=== PATIENT | female | born 1990 | race Caucasian/White ===

== ENCOUNTER → 2017-12-28 | Outpatient (CLI) | payer MEDICAID ==
[~2017-12-28] MED LIST: BUS10 PO; CITA-141 PO; DIC250 PO; DOC240 PO; DULO60CA56 PO; FERR325C2 PO; FLU20 PO; HYDR25CA83 PO; IBU800 PO; LAMO200T46 PO; LEVO50TA80 PO; LORA-630 PO; METO5SOL18 PO; ONDA4TAB PO; PAR20 PO; PER PO; POLY17PO25 PO; QUET400T13 PO; QUET50TA21 PO; [UNRECOGNIZED DRUG - CODE] TP
[2017-12-28 12:06] LABS: PLATELET COUNT, AUTOMATED 218 K/uL (150-450)
--- NOTE | 2017-12-28 12:08 | EKG ---
[place] [facility] [place] PAOLO WERNER : [id number] MR: [id number] V: [id number] EXAM DATE: ORDERING PHYSICIAN: EVERARDO SCALES TECHNOLOGIST: DEV Test Reason : CP Blood Pressure : / mmHG Vent. Rate : 078 BPM Atrial Rate : 078 BPM P-R Int : 146 ms QRS Dur : 076 ms QT Int : 428 ms P-R-T Axes : 061 079 057 degrees QTc Int : 487 ms Normal sinus rhythm Prolonged QT Abnormal ECG No previous ECGs available Confirmed by CHARLEY CHAPMAN ([id number]) on 12/29/2017 6:23:46 AM Referred By: TIM MIRANDA Confirmed By:CHARLEY CHAPMAN
[2017-12-28 12:19] LABS: LDL CHOLESTEROL 122 mg/dl
== END ==
LOC: LAB 11:38
PROVIDERS: ATTEND Nurse Practitioner Family
DX: E03.9 Hypothyroidism, unspecified (principal); R07.9 Chest pain, unspecified; E78.5 Hyperlipidemia, unspecified; R53.83 Other fatigue; R00.2 Palpitations
CPT/HCPCS: 36415; 82040; 82247; 82310; 82374; 82435; 82465; 82565; 82947; 83718; 84075; 84132; 84155; 84295; 84439; 84443; 84450; 84460; 84478; 84480; 84520; 85025; 93005

== ENCOUNTER → 2018-03-01 | Outpatient (CLI) | payer MEDICAID ==
[~2018-03-01] MED LIST changes: +FOLI0.4T56 PO; +PREN-127 PO; +QUET100T PO; +QUET200T83 PO; +QUET400T PO; +QUEXR300PT GT; +THYR15TA; +THYR15TA PO; +THYR30TA PO; +THYR90TA13 PO
[2018-03-01 10:22] LABS: PLATELET COUNT, AUTOMATED 194 K/uL (150-450)
== END ==
LOC: LAB 08:22
PROVIDERS: ATTEND Student in an Organized Health Care Education/Training Program
DX: Z34.91 Encounter for supervision of normal pregnancy, unspecified, first trimester (principal); E03.9 Hypothyroidism, unspecified
CPT/HCPCS: 36415; 81001; 84439; 84443; 85025; 86592; 86703; 86762; 86850; 86900; 86901; 87088; 87340

== ENCOUNTER → 2018-03-18 | Outpatient (CLI) | payer MEDICAID | LOC: LAB 12:29 | PROVIDERS: ATTEND Student in an Organized Health Care Education/Training Program | DX: Z34.91 Encounter for supervision of normal pregnancy, unspecified, first trimester (principal) | CPT/HCPCS: 87491; 87591 ==

== ENCOUNTER → 2018-05-13 | Outpatient (CLI) | payer MEDICAID ==
[~2018-05-13] MED LIST changes: +FLU60VIA41 IM
== END ==
LOC: LAB 13:26
PROVIDERS: ATTEND Student in an Organized Health Care Education/Training Program
DX: O99.282 Endocrine, nutritional and metabolic diseases complicating pregnancy, second trimester (principal); E03.9 Hypothyroidism, unspecified
CPT/HCPCS: 36415; 84443

== ENCOUNTER → 2018-06-11 | Outpatient (CLI) | payer MEDICAID ==
--- NOTE | 2018-06-11 00:41 | RADIOLOGY IMAGING REPORT ---
FACILITY: [facility] PATIENT NAME: Karen Hameed : 1990 MR: [id number] V: [id number] EXAM DATE: ORDERING PHYSICIAN: RADHA BRAVO TECHNOLOGIST: Location: [facility] Patient: Karen Hameed : 1990 Visit/Account:[id number] Date of Sevice: 06/10/2018 [facility] OB ANATOMICAL SURVEY HISTORY: Screening. COMPARISON STUDIES: None. FINDINGS: Intrauterine gestations: One. presentation: Variable. heart rate: Regular at 147 bpm. Amniotic fluid index: 21.5 cm. Largest amniotic fluid pocket 5.7 cm. Placenta: Anterior without previa. There are venous lakes. Placental cord insertion is normal. Uterus: Gravid, otherwise normal. Maternal adnexa: Unremarkable. Cervix: Closed. Gestational Parameters: BPD: 5.3 cm 22 weeks/ 2 days HC: 20.1 cm 22 weeks/ 2 days AC: 17.2 cm 22 weeks/ 2 days FL: 3.6 cm 21 weeks/ 4 days Average ultrasound age (AUA): 22 weeks 1 days Estimated gestational age by LMP of 01/14/2018: 21 weeks 0 days, corresponding to ESTRELLA 10/21/2017. Estimated weight (EFW): 463 grams +/- 68 grams EFW: 90 th percentile based on LMP Anatomic Survey: Intracranial structures, right ventricular outflow tract, aortic arch, stomach, kidneys, urinary blad ashley, spine, 3-vessel cord and cord insertion are unremarkable. Two upper and two lower extremities vi sualized. Nasal bone is not appreciated on the profile view, potentially positional. Four-chamber hea rt view is optimal nor is the left ventricular outflow tract view. Nose and lips view was not obtaine d. gender appears male. IMPRESSION: 1. Single live intrauterine gestation; estimated ultrasound age 22 weeks 1 days, corresponding to ESTRELLA 10/13/2018, 8 days ahead of the ESTRELLA based on LMP. 2. Normal anatomic survey. Patient is returning for imaging of the nose and lips view, left tobias tricular outflow tract, and four-chamber heart view. Suggestion is to repeat the profile view at that time to visualize the nasal bone. Report Dictated By: Daniela Morales at 06/11/2018 12:31 AM Report E-Signed By: Daniela Morales at 06/11/2018 12:38 AM WSN:[id number]
== END ==
LOC: US 06-10 09:49
PROVIDERS: ATTEND Student in an Organized Health Care Education/Training Program
DX: Z34.82 Encounter for supervision of other normal pregnancy, second trimester (principal); Z3A.22 22 weeks gestation of pregnancy
CPT/HCPCS: 76815

== ENCOUNTER → 2018-07-30 | Outpatient (CLI) | payer MEDICAID ==
[~2018-07-30] MED LIST changes: +DIPH0.5D12 IM
[2018-07-30 14:30] LABS: PLATELET COUNT, AUTOMATED 185 K/uL (150-450)
== END ==
LOC: LAB 08:49
PROVIDERS: ATTEND Student in an Organized Health Care Education/Training Program
DX: O99.282 Endocrine, nutritional and metabolic diseases complicating pregnancy, second trimester (principal); E03.9 Hypothyroidism, unspecified
CPT/HCPCS: 36415; 82950; 84443; 85025

== ENCOUNTER → 2018-08-01 | Outpatient (CLI) | payer MEDICAID | LOC: LAB 09:18 | PROVIDERS: ATTEND Student in an Organized Health Care Education/Training Program | DX: O99.810 Abnormal glucose complicating pregnancy (principal) | CPT/HCPCS: 36415; 82951; 82952 ==

== ENCOUNTER 2018-08-09 12:26 | Outpatient (CLI) | payer MEDICAID ==
[~2018-08-09] VITALS: Ht 160 cm; Wt 66.2 kg
[2018-08-09 12:32] VITALS: BP 126/69
[2018-08-09 16:52] VITALS: Ht 160 cm; Wt 66.2 kg
[2018-08-11] MEDS ORDERED: OSE75 FT (12:40)
== END 2018-08-09 15:30 | disposition home or self-care (01) ==
LOC: ER 12:33 → OB 12:39 → UNDOADMIN 12:39 → L&D 12:39 → EDSTATUS 12:39 → UNDODISIN 15:30 → L&D 15:30
PROVIDERS: ATTEND Emergency Medicine
DX: O26.893 Other specified pregnancy related conditions, third trimester (principal); Z3A.29 29 weeks gestation of pregnancy
CPT/HCPCS: 99213

== ENCOUNTER → 2018-09-24 | Outpatient (CLI) | payer MEDICAID ==
[2018-08-09 16:52] VITALS: BMI 25.9
[~2018-09-24] MED LIST changes: +BET6I IM ONLY; +OSE75 FT
== END ==
LOC: LAB 11:15
PROVIDERS: ATTEND Student in an Organized Health Care Education/Training Program
DX: Z36.85 Encounter for antenatal screening for Streptococcus B (principal)
CPT/HCPCS: 87081

== ENCOUNTER 2018-10-01 04:52 | Inpatient (IN) | payer MEDICAID ==
[~2018-10-01] VITALS: Ht 165.1 cm; Wt 79.4 kg
[2018-10-01] VITALS (24 sets, daily range): BP systolic 101–148; BP diastolic 68–91; Ht 165.1 cm; Wt 79.4 kg
[~2018-10-01 04:52] MED LIST changes: -DIPH0.5D12 IM; +DIPH0.5S2 IM
[2018-10-01] MEDS ORDERED: LR(*) 1000 ML BAG 1,000 ML IV SCH (04:53)
[2018-10-01] MEDS ORDERED: ceFAZolin(*) 2GM/D5W 50ML 50 ML IVPB ONE (04:53)
[2018-10-01] MEDS ORDERED: FAMOTIDINE 20 MG/50 ML PREMIX IVPB ONE ×2 (04:55→10:00)
[2018-10-01 06:01] LABS: PLATELET COUNT, AUTOMATED 169 K/uL (150-450)
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
[2018-10-01] MEDS ORDERED: ONDANSETRON 4 MG/2 ML VIAL ONE (06:50)
[2018-10-01] MEDS ORDERED: fentaNYL CITR 100 MCG/2 ML AMP ONE (06:50)
[2018-10-01] MEDS ORDERED: MORPHINE PF 5 MG/10 ML AMP ONE (06:51)
--- NOTE | 2018-10-01 07:35 | History & Physical ---
History of Present Illness Age of Patient: 28 : 3 Para or TPAL: 2 EDC per LMP: Oct 21, 2018 Estimated Gestational Age: 37.1 Chief Complaint Scheduled section. History of Present Illness Pt is a 28 y/o @ 37-1/7 wga by lmp who presents to L&D with a complaint of GHTN. Pt is scheduled for a rltcs. Pt denies any headache or visual changes. Good movement. No vaginal bleeding or loss of amniotic fluid. History Patient's Blood Type: A Positive Rubella Status: Equivocal Group B Strep Screen: Negative Obstetrical History: 2 Prior C/s X 2 Past Medical History: Hypothyroid Quetiapine use through out . 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 Family History: Anxiety disorder FATHER, Age:64 Congenital heart defect cousin FH: depression FATHER, Age:64 MOTHER, Age:60 FH: hypothyroidism MOTHER, Age:60 FH: type 2 diabetes FATHER, Age:64 Heart murmur brother Mitral valve prolapse sister Med Rec Home Meds Active Scripts Thyroid,Pork (Assembly Line Worker Thyroid) 15 Mg Tablet, 15 MG PO DAILY, #30 TAB-CAP 3 Refills Prov:RADHA BRAVO DO 06/11/18 Thyroid,Pork (BRANCH RENTAL MANAGER THYROID) 90 Mg Tablet, 90 MG PO DAILY, #30 TAB-CAP 3 Refills Prov:RADHA BRAVO DO 06/11/18 Reported Medications Quetiapine Fumarate (QUETIAPINE FUMARATE) 400 Mg Tablet, 400 MG PO 03/01/18 Vits W-Ca,Fe,Fa(<1MG) ( VITAMINS) 1 Each Tablet, 1 EACH PO DAILY, TAB 03/01/18 Discontinued Scripts Oseltamivir Phosphate (TAMIFLU) 75 Mg Cap, 75 MG FT BID for Flu symptoms for 5 Days, #10 CAP 0 Refills Prov:GUSTAVO DESHPANDE CNM 08/11/18 Review of Systems All Systems Reviewed/Normal: Yes, Except as Noted Constitutional: No Fever, No Weight Loss, No Weight Gain, No Chills, No Night Sweats, No Other Neurological: No Syncope, No Confusion, No Weakness, No Dizziness, No Slurred Speech, No Other Eyes: No Vision Change, No Loss of Vision, No Photophobia, No Other ENT: No Hearing Loss, No Sinus Congestion, No Sore Throat, No Ear Ache, No Tinnitus, No Other Cardiovascular: No Chest Pain, No Palpitations, No Orthostatic Hypotension, No Other Respiratory: No Shortness of Breath, No Cough, No Wheezing, No Other Gastrointestinal: No Nausea, No Vomiting, No Diarrhea, No Dysphagia, No Constipation, No Early Satiety, No Hematemesis, No Hematochezia, No Melena, No Abdominal Pain, No Other Genitourinary: No Dysuria, No Hematuria, No Urinary Incontinence, No Other Musculoskeletal: No Pain, No Sprain, No Strain, No Impaired Mobility, No Other Psychiatric: No Depression, No Anxiety, No Other Exam General Exam Vital Signs Vital Signs Date Time Temp Pulse Resp B/P (MAP) Pulse Ox O2 Delivery O2 Flow Rate FiO2 10/01/18 05:50 98.3 81 18 148/91 (110) 94 Room Air General Apperance: Alert/Awake/No Acute Distress Neuro: No Gross deficits Eyes: Normal Extraocular Movement & Vison, PERRLA ENT: Normal Cardiovascular: Regular Rate and Rhythm Respiratory: No Respiratory Distress, Clear to Auscultation Abdomen: Soft, Non-Tender, Non-Distended : Normal Musculoskeletal: No Weakness/Pain Extremities: No Cyanosis,Clubbing or Edema Integumentary: Skin Intact without Lesions or Rash Psychological: Alert & Oriented X3, Appropriate Mood & Affect Medical Decision Making Data Points Result Diagram: 10/01/18 0531 Pre-Admit Course Medical Record Review: Yes VTE Prophylasis: Adult Deep Vein Thrombosis/Pulmonary: No Assessment and Plan 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 Will monitor post operatively. RADHA BRAVO DO Oct 01, 2018 07:35
[2018-10-01] MEDS ORDERED: ePHEDrine 25 MG/5 ML DISP.SYR IVP ONE (07:58)
[2018-10-01] MEDS ORDERED: PROMETHAZINE 25 MG/ML 1 ML AMP IVP PRN (09:05)
[2018-10-01] MEDS ORDERED: NALBUPHINE HCL 10 MG/ML AMP IVP PRN (09:05)
[2018-10-01] MEDS ORDERED: LANOLIN OINT 7 GM TUBE TP PRN (09:05)
[2018-10-01] MEDS ORDERED: SIMETHICONE 80 MG CHEW CHEW PRN (09:05)
[2018-10-01] MEDS ORDERED: KETOROLAC 30 MG/ML VIAL IVP ONE (09:05)
[2018-10-01] MEDS ORDERED: OXYTOCIN 30 UNIT/D5LR 500 ML 500 ML IV PRN (09:05)
[2018-10-01] MEDS ORDERED: DLR(*) 1000 ML BAG 1,000 ML IV PRN (09:05)
[2018-10-01] MEDS ORDERED: ACETAMINOPHEN 325 MG TAB PO PRN (09:05)
[2018-10-01] MEDS ORDERED: fentaNYL CITR 100 MCG/2 ML AMP IT PRN (09:05)
[2018-10-01] MEDS ORDERED: diphenhydrAMINE 50 MG/ML VIAL IV PRN (09:05)
[2018-10-01] MEDS ORDERED: ONDANSETRON 4 MG/2 ML VIAL IV PRN (09:05)
[2018-10-01] MEDS ORDERED: DLR(*) 1000 ML BAG 1,000 ML IV ONE (09:14)
--- NOTE | 2018-10-01 09:30 | Post Operative Note ---
Operative Note - [facility] Operative Day Date: Oct 01, 2018 Time: 09:20 Physicians Surgeon: Radha Redmond Programs Assistant: Mansi Hodges Anesthesia: Spinal Diagnosis Pre-Op Diagnosis: 28 y/o @ 37-1/7 wga GHTN Hypothyroid Prior C/s X 2 Post-Op Diagnosis: same Delivered Procedure Findings: Live born male infant at 0755 with APGARS of 9/9 weight 3496 gm 7#11.3 oz. 3vc/ip. Normal fallopian tubes bilaterally. Normal Ovaries bilaterally. Procedure(s): RLTCS Specimen Removed:(Maybe N/A): 0 Complications: 0 known Fluids Fluids: 1 L LR u/o 25 cc Estimated Blood Loss: 850 Dictated Date OP Note Dictated: Oct 01, 2018 Time OP Note Dictated: 09:30 RADHA REDMOND DO Oct 01, 2018 09:30
--- NOTE | 2018-10-01 11:47 | OPERATIVE REPORT 1 ---
EVENT DATE: October 01, 2018 SURGEON: Driss Redmond DO ANESTHESIA: Spinal, Daniella Link CRNA INSPECTOR HAIRSPRING TRUING: Mansi Hodges MD PREOPERATIVE DIAGNOSIS 1. 28-year-old 3, para 2 at 37 and 1/7 weeks gestation. 2. Gestational hypertension. 3. Hypothyroidism. 4. Prior delivery times 2. POSTOPERATIVE DIAGNOSIS 1. 28-year-old 3, para 2 at 37 and 1/7 weeks gestation. 2. Gestational hypertension. 3. Hypothyroidism. 4. Prior delivery times 2. 5. Delivered. PROCEDURE PERFORMED Repeat low-transverse section. FINDINGS Live-born male at 07:55 with Apgars of 9 and 9, weighing 3496 grams, 7 lbs. 11 oz., 3-vessel cord, intact placenta. There were normal tubes and ovaries bilaterally. ESTIMATED BLOOD LOSS 850 cc. PATHOLOGY None. IV FLUIDS 1800 lactated ringers. URINE OUTPUT 25 cc. COMPLICATIONS None known. CONDITION Stable times 2. Mother and in recovery. COUNTS Correct for all needles, lap, sponges and instruments. INDICATION AND CONSENT The patient is a 28-year-old 3, para 2 who presents to Labor and Delivery for a scheduled repeat low-transverse section. The patient was noted to have multiple blood pressures over the course of the last week and the week prior that met the criteria for gestational hypertension. She did receive betamethasone on and Sunday of last week for lung maturity secondary to an early term delivery. The patient was counselled that based on prior history of , we should move her delivery up because of gestational hypertension. The consented and agreed to proceed with surgery as indicated. DESCRIPTION OF PROCEDURE The patient was taken to the operating room. Once she had a spinal anesthesia achieved, she was then placed in the dorsal supine position. She was then prepped and draped in the usual sterile manner. Skin testing was performed. Her prior incision was removed and a Pfannenstiel incision was created all the way down to the layer of the fascia. The fascia was visualized and notched bilaterally. The fascia was grasped with Esther clamps and dissected off of the rectus muscles sharply both inferiorly and superiorly. The rectus muscles were in the midline. The peritoneum was entered sharply. The rectus muscles were dissected both inferior and superiorly to allow visualization of the midline. With the peritoneum incised, a gentle stretching was performed. A bladder blade was placed. A bladder flap was created with Metzenbaum scissors. The bladder blade was replaced and a low-transverse incision was created on the uterus with a scalpel. This was carried all the way down to the layer of the amnion. Once the amnion was visualized, it was ruptured with clear amniotic fluid. The hysterotomy was extended with the surgeon's fingers. The surgeon's hand was placed the hysterotomy. With gentle fundal pressure, the infant's head delivered in a controlled manner, followed by the posterior shoulders with a gentle upward motion, anterior shoulders with gentle downward motion. The remainder of the infant's body then delivered spontaneously. At this point a vigorous, live-born male was delivered. Mouth and nose were bulb suctioned. After approximately 1 minute, the cord was clamped and cut. The was shown to mother and father and handed to awaiting nursing staff and taken to the warmer to be vigorously cleaned and dried. Cord blood gas was obtained. The placenta delivered spontaneously. The uterus was then exteriorized. It was cleaned of all clot and debris with a dry laparotomy sponge. Hysterotomy was closed with a 0 Monocryl in a running manner. Imbrication stitch was used to help with hemostasis with an addition 0 Monocryl. Hemostasis was noted on the hysterotomy. At this point, the posterior gutter was cleaned of all clot and debris. The uterus was placed back inside the abdomen. The right and left gutters were cleaned of all clot and debris. The hysterotomy was once again inspected and found to be hemostatic. The peritoneum was grasped with Bailee clamps. The peritoneum was closed in a running manner with a 2-0 Monocryl. The fascia was then closed with a loop 0 PDS. Irrigation was then used to irrigate the subcutaneous tissue. The subcutaneous tissue was then closed with a 3-0 Monocryl in a running manner. The skin was then closed with 4-0 Monocryl in a subcuticular manner. The skin then had Dermabond placed over the incision. The patient was then cleaned. She was transferred to a hospital bed and transferred to the recovery room in stable condition. TIFFANY
[2018-10-01] MEDS: KETOROLAC 30 MG/ML VIAL IVP SCH ×2 (14:49→21:13)
[2018-10-01] MEDS ORDERED: NS(*) 0.9% 500 ML BAG 500 ML IV ONE (15:55)
[2018-10-01] MEDS: ZOLPIDEM TARTRATE 10 MG TAB PO SCH (21:00)
[2018-10-01] MEDS: FAMOTIDINE 20 MG TAB PO SCH (21:13)
[2018-10-01] MEDS: DOCUSATE CALCIUM 240 MG CAP PO SCH (21:13)
[2018-10-02] VITALS (7 sets, daily range): BP systolic 101–147; BP diastolic 75–103
[2018-10-02] MEDS: guaiFENesin 600 MG TABCR PO SCH ×3 (00:21→21:18)
[2018-10-02] MEDS: KETOROLAC 30 MG/ML VIAL IVP SCH (02:45)
--- NOTE | 2018-10-02 04:58 | Anesthesia Post Eval Note ---
Anesthesia Post Eval Note Vital Signs Date Time Temp Pulse Resp B/P (MAP) Pulse Ox O2 Delivery O2 Flow Rate FiO2 10/02/18 02:43 97.9 83 16 101/75 (84) 92 Room Air 10/01/18 14:05 1.0 Pt able to participate in Eval: Yes Cardiovascular Status: Satisfactory Respiratory Status: Satisfactory Pain Managment: Satisfactory PO Nausea/Vomiting: Satisfactory Temperature Management: Satisfactory Mental Status: Satisfactory (Patient with baseline psychiatric pathology demonstrating anxiety today by having a "panic attack" when she had sinus conjestion. She is calm for interview, and expressed satisfaction with her anesthesia for section.) Post-Op Hydration Status: Satisfactory Anesthesia Type: SAB Anesthesia Tolerance: She tolerated her procedure well, seems well bonded with her . Her has demonstrated strong support. Spinal stick site is without redness swelling or drainage. Signs of infection are reviewed with patient and and they agree to seek medical advice should these or headache develop. FLORENCE ARREOLA CRNA Oct 02, 2018 04:58
[2018-10-02] MEDS: THYROID PORK PO SCH (06:00)
[2018-10-02] MEDS ORDERED: THYROID PORK 90 MG PO SCH (06:00)
[2018-10-02 06:06] LABS: PLATELET COUNT, AUTOMATED 132 K/uL (150-450)
[2018-10-02] MEDS ORDERED: hydrOXYzine 25 MG TAB PO PRN ×2 (07:05)
[2018-10-02] MEDS ORDERED: IBUPROFEN 800 MG TAB PO SCH (09:00)
--- NOTE | 2018-10-02 09:46 | OB/GYN Progress Note ---
OB Subjective Progress Notes Subjective Pt is tired this morning. Denies any pain concerns. Pain 2/10. Tolerating regular diet. Catheter was just removed. Ambulatory in room only. Voiding. with minimal difficulty. GI: NEG Nausea, NEG Vomiting, NEG Flatus, NEG Bowel Movement : Voiding Well Pain: Mild, Tolerating PO Pain Meds Neurological: No Headache, No Other Eyes: No Visual Disturbances OB Objective Physical Exam Vital Signs Date Time Temp Pulse Resp B/P (MAP) Pulse Ox O2 Delivery O2 Flow Rate FiO2 10/02/18 07:30 98.3 97 14 128/90 (103) 96 Room Air 10/01/18 14:05 1.0 Intake and Output 10/02/18 06:59 Intake Total 3670 ml Output Total 1810 ml Balance 1860 ml Intake Oral 620 ml IV Total 3050 ml Output Urine Total 1810 ml General Appearance: Alert/Awake/No Acute Distress Neurological: No Gross deficits Eyes: Normal Extraocular Movement & Vison, PERRLA ENT: Normal Neck: No Masses Cardiovascular: Normal Rhythm & Peripheral Pulses, Regular Rate and Rhythm Respiratory: No Respiratory Distress, Clear to Auscultation Incision: Clean, Dry, Intact, Dermabond Extremities: No Cyanosis,Clubbing or Edema Integumentary: Skin Intact without Lesions or Rash Psychological: Alert & Oriented X3, Appropriate Mood & Affect Result Diagram: 10/02/18 0548 Assessment and Plan INFORMATICS COORDINATOR Assessment: Stable INFORMATICS COORDINATOR Plan: Routine Post-Op Care Problems: (1) History of delivery Status: Resolved Assessment & Plan: Will add short/immediate acting seroquel for night time anxiety. Add FeSO4 for post operative anemia, pt asymptomatic. RADHA BRAVO DO Oct 02, 2018 09:46
[2018-10-02] MEDS: DOCUSATE CALCIUM 240 MG CAP PO SCH ×2 (09:48→21:18)
[2018-10-02] MEDS: FAMOTIDINE 20 MG TAB PO SCH ×2 (09:48→21:18)
[2018-10-02] MEDS ORDERED: QUEtiapine FUM 25 MG TAB PO PRN (16:45)
[2018-10-02] MEDS: FERROUS SULFATE 325 MG TAB PO SCH (17:00)
[2018-10-02] MEDS ORDERED: FERROUS SULFATE 325 MG TAB PO ONE (20:05)
[2018-10-02] MEDS: ZOLPIDEM TARTRATE 10 MG TAB PO SCH (21:00)
[2018-10-02] MEDS ORDERED: PATIENT'S OWN MED PO SCH (22:00)
[2018-10-03 02:46] VITALS: BP 134/89
[2018-10-03] MEDS: IBUPROFEN 800 MG TAB PO SCH ×2 (03:27→12:52)
[2018-10-03] MEDS: THYROID PORK PO SCH (05:55)
[2018-10-03 08:05] VITALS: BP 136/93
--- NOTE | 2018-10-03 08:24 | OB/GYN Progress Note ---
OB Subjective Progress Notes Subjective Doing good this morning. Reports bleeding is appropriate and on par with prior deliveries. Tolerating regular diet. Ambulatory in room and in grbuer. Voiding with out any difficulty. with out any problems. Pain controlled with po pain medications. GI: NEG Nausea, NEG Vomiting, NEG Flatus, NEG Bowel Movement : Voiding Well, Vaginal Bleeding, Moderate Pain: Mild, Comfortable, Tolerating PO Pain Meds Neurological: No Headache, No Other Eyes: No Visual Disturbances OB Objective Physical Exam Vital Signs Date Time Temp Pulse Resp B/P (MAP) Pulse Ox O2 Delivery O2 Flow Rate FiO2 10/03/18 02:46 85 16 134/89 (104) 91 Room Air 10/02/18 23:10 99.0 10/01/18 14:05 1.0 Intake and Output 10/03/18 07:00 Intake Total 480 ml Output Total 300 ml Balance 180 ml Intake Oral 480 ml Output Urine Total 300 ml General Appearance: Alert/Awake/No Acute Distress Neurological: No Gross deficits Eyes: Normal Extraocular Movement & Vison, PERRLA ENT: Normal Neck: No Masses Cardiovascular: Normal Rhythm & Peripheral Pulses, Regular Rate and Rhythm Respiratory: No Respiratory Distress, Clear to Auscultation Abdomen: Soft, Non-Tender, Non-Distended, Fundus Firm Incision: Clean, Dry, Intact, Dermabond Extremities: No Cyanosis,Clubbing or Edema Integumentary: Skin Intact without Lesions or Rash Psychological: Alert & Oriented X3, Appropriate Mood & Affect Result Diagram: 10/02/18 0548 Assessment and Plan 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 Will plan for discharge home today if the infant is discharged (room in otherwise). Follow up in 2 weeks. RADHA BRAVO DO Oct 03, 2018 08:24
[2018-10-03] MEDS ORDERED: OXYC-865 PO (08:28)
[2018-10-03] MEDS ORDERED: IBUP800T37 PO (08:28)
[2018-10-03] MEDS ORDERED: FERR-53 PO (08:30)
--- NOTE | 2018-10-03 08:33 | OB/GYN Discharge Summary ---
Discharge Summary Reason for Hosp/Final Diag: (1) History of delivery Status: Resolved Hospital Course & Plan: Pt presented for a scheduled RLTCS at 37 weeks for gestational hypertension. Pt underwent procedure with out any difficulty or complications. See operative report for details of procedure. Pt did have Post operative anemia and was asymptomatic. The decision was made to not transfuse. Pt was started on Iron BID. Pt remained in house for 2 days post operatively. She was meeting post operative/ goals and was discharged home to follow up in 2 weeks. Lates Vital Signs Vital Signs Date Time Temp Pulse Resp B/P (MAP) Pulse Ox O2 Delivery O2 Flow Rate FiO2 10/03/18 02:46 85 16 134/89 (104) 91 Room Air 10/02/18 23:10 99.0 10/01/18 14:05 1.0 Weight (Pounds): 175 Result Diagram: 10/02/18 0548 Condition: Improved Discharge: Home Home Meds Active Scripts Oxycodone Hcl/Acetaminophen (PERCOCET 5-325 MG TABLET) 1 Each Tablet, 1 EACH PO Q4-6H PRN for PAIN, #30 TAB 0 Refills max 10/day Prov:RADHA BRAVO DO 10/03/18 Thyroid,Pork (Labor Service Representative Thyroid) 15 Mg Tablet, 15 MG PO DAILY, #30 TAB-CAP 3 Refills Prov:RADHA BRAVO DO 06/11/18 Thyroid,Pork (CELLOPHANE TESTER THYROID) 90 Mg Tablet, 90 MG PO DAILY, #30 TAB-CAP 3 Refills Prov:SHELLYRADHA DO 06/11/18 Reported Medications Quetiapine Fumarate (QUETIAPINE FUMARATE) 400 Mg Tablet, 400 MG PO 03/01/18 Vits W-Ca,Fe,Fa(<1MG) ( VITAMINS) 1 Each Tablet, 1 EACH PO DAILY, TAB 03/01/18 Discontinued Scripts Oseltamivir Phosphate (TAMIFLU) 75 Mg Cap, 75 MG FT BID for Flu symptoms for 5 Days, #10 CAP 0 Refills Prov:GUSTAVO DESHPANDE CNM 08/11/18 Follow up with: [facility] [phone], Dr. Bravo [phone] Follow up in: 6 wks PP or PO, 2 wks PO Discharge Diet: As Tolerates, Increase Fluid Intake Discharge Activity: No Heavy Lifting x 6 wks, Pelvic Rest Copies to: TIM MIRANDA GOVERNMENT RELATIONS ANALYST ; RADHA BRAVO DO Oct 03, 2018 08:33
[2018-10-03] MEDS: FERROUS SULFATE 325 MG TAB PO SCH (08:58)
[2018-10-03] MEDS: DOCUSATE CALCIUM 240 MG CAP PO SCH (08:58)
[2018-10-03] MEDS: FAMOTIDINE 20 MG TAB PO SCH (08:58)
[2018-10-03] MEDS ORDERED: MEASLES,MUMP,RUBELLA VAC 0.5ML SUBQ ONE (09:00)
[2018-10-03] MEDS: guaiFENesin 600 MG TABCR PO SCH (09:00)
[2018-10-03] MEDS ORDERED: DIPHTH/TETANUS/ACEL. PERTUSSIS IM ONLY ONE (09:00)
[2018-10-03] MEDS ORDERED: INFLUENZA VIRUS VAC 0.5ML SYR IM ONLY ONE (09:00)
[2018-10-03 11:30] VITALS: BP 136/91
[2018-10-03] MEDS ORDERED: IBUPROFEN 800 MG TAB PO SCH (20:09)
[2018-10-08] MEDS ORDERED: THYR90TA13 PO (10:24)
[2018-10-08] MEDS ORDERED: THYR15TA PO (10:24)
== END 2018-10-03 16:30 | disposition home or self-care (01) | DRG 787 ==
LOC: OB 04:52
PROVIDERS: ADMIT Student in an Organized Health Care Education/Training Program; ATTEND Student in an Organized Health Care Education/Training Program
PROC: 10D00Z1 Extraction of Products of Conception, Low, Open Approach (ICD-10-PCS; principal; 2018-10-01 07:30)
DX: O34.211 Maternal care for low transverse scar from previous cesarean delivery (principal); D62 Acute posthemorrhagic anemia; O13.4 Gestational [pregnancy-induced] hypertension without significant proteinuria, complicating childbirth; Z3A.37 37 weeks gestation of pregnancy; Z37.0 Single live birth; N85.8 Other specified noninflammatory disorders of uterus; O99.284 Endocrine, nutritional and metabolic diseases complicating childbirth; E03.9 Hypothyroidism, unspecified; O99.344 Other mental disorders complicating childbirth; F31.9 Bipolar disorder, unspecified; F41.9 Anxiety disorder, unspecified; O90.81 Anemia of the puerperium
CPT/HCPCS: 36415; 85025; 86850; 86900; 86901; J0690; J1885; J2270; J2405; J3010; J7040; J7120

== ENCOUNTER → 2018-11-13 | Outpatient (CLI) | payer MEDICAID ==
[2018-10-01 05:50] VITALS: BMI 29.1
[~2018-11-13] MED LIST changes: +FERR-53 PO; +IBUP800T37 PO; +OXYC-865 PO
== END ==
LOC: LAB 13:35
PROVIDERS: ATTEND Student in an Organized Health Care Education/Training Program
DX: E03.9 Hypothyroidism, unspecified (principal)
CPT/HCPCS: 36415; 84443